=== PATIENT | male | born 1950 | race Caucasian/White ===

== ENCOUNTER 2016-12-20 02:22 | Emergency (ER) | payer OTHER ==
[2016-12-20] MEDS ORDERED: TYLENOL PO ONE (02:37)
[2016-12-20 02:46] LABS: MANUAL DIFF NEEDED? NO
--- NOTE | 2016-12-20 02:50 | PROVIDER DOCUMENTATION ---
HPI-Respiratory General - General Chief Complaint: Flu Symptoms Stated Complaint: FLU SYMPTOMS Time Seen by Provider: 12/20/16 02:45 Source: patient (coughing short of breath clear no wheezes has had diarrhea nausea dry heaves headache daughter to the clinic) Allergies/Adverse Reactions: Patient Allergies Allergy/AdvReac Type Severity Reaction Status Date / Time No Known Allergies Allergy Verified 12/20/16 02:29 Home Medications: Home Medication List Medication Instructions Recorded Confirmed Last Taken Type ATORVAstatin [Lipitor] 20 mg PO QHS 12/20/16 12/20/16 Unknown History Guaifenesin/Codeine [Robitussin-AC] 10 ml PO Q4H PRN PRN #8 oz 12/20/16 Unknown Rx LISINOpril [Prinivil] 5 mg PO DAILY 12/20/16 12/20/16 Unknown History Niacin [Niacin ER] 500 mg PO DAILY 12/20/16 12/20/16 Unknown History Tamsulosin HCl 0.4 mg PO DAILY 12/20/16 12/20/16 Unknown History - History of Present Illness-Resp Quality of Pain: reports: aching Severity in ED: reports: moderate Onset/Duration: reports: 2 days ago Timing: reports: still present, getting worse Context: reports: recent URI Cough Quality/Degree: reports: dry cough. denies: productive cough, blood streaked sputum Episode Frequency: occasional episodes Current Respiratory Medication Therapy: Not Used albuterol/atrovent inhale, Not Used prednisone, Not Used albuterol Modifying Factors: improves with: coughing. worse with: lying down, sitting upright Associated Symptoms: reports: chest pain/soreness, cough, fever/chills, flu- like symptoms, headache, muscle/bodyaches, nasal congestion, nasal drainage. denies: earache, hurts to breathe, shortness of breath, sinus pain, short of breath, sore throat, sweaty, wheezing Similar Symptoms Previously?: No Recently seen or treated by another doctor?: No Review of Systems - Adult - REVIEW OF SYSTEMS - ADULT Constitutional: reports: chills, fever, night sweats Eyes: denies: dry eyes, decreased vision, blurred vision, double vision, eye pain, redness Ears, Nose, Mouth & Throat: denies: ear pain, sinus problem, nose pain, hoarseness, throat pain, throat swelling Cardiovascular: reports: edema. denies: chest pain, irregular heart rate, palpitations, PND, syncope Respiratory: reports: cough. denies: dyspnea on exertion, hemoptysis, wheezing Gastrointestinal: reports: diarrhea, nausea, vomiting. denies: constipation, poor appetite Genitourinary: denies: dysuria, discharge, frequency, hematuria, hesitency Musculoskeletal: denies: bone pain, back pain, joint pain, joint swelling Integumentary: reports: no symptoms reported Neurological: reports: dizziness/vertigo, headache/migraines Endocrine: denies: cold intolerance, heat intolerance, increased thirst, polyuria Hematologic/Lymphatic: denies: blood clots, easy bruising, low blood count Allergic/Immunologic: denies: asthma Past History - Adult - PAST MEDICAL HISTORY-ADULT Review of Records: reports: Nursing Assessment Review, Medications Reviewed, Social history reviewed & non-contributory. Major Childhood Illnesses: reports: denies history Cardiovascular: reports: HTN, hyperlipidemia. denies: A-Fib, aortic disease, arrhythmia, blood clots, CAD, CHF, AL, PAD, palpitations, pacemaker, pericardial disease Respiratory: reports: sleep apnea. denies: asthma, bronchitis, COPD Gastrointestinal: reports: GERD. denies: cholelithiasis, diverticulosis, GI bleed, hepatitis, inflammatory bowel disease, IBS Genitourinary: reports: denies history. denies: kidney disease, kidney stones, polycystic kidney disease, prostatitis, prostate cancer Musculoskeletal: reports: denies history Neurological: reports: denies history Endocrine/Immune: denies: Diabetes, thyroid disorder - PRIOR SURGERIES/PROCEDURES Surgical/Procedure History: reports: orthopedic (extremity) - SOCIAL HISTORY Smoking: denies Substance Use: none/never Alcohol Use Frequency: never Physical Exam-General - PHYSICAL EXAM-ADULT Initial Vital Signs Reviewed: Yes - CONSTITUTIONAL General Appearance: mild distress - EYES Eyes: PERRL/EOMI, pink conjunctivae - HEAD, EARS, NOSE, MOUTH & THROAT HENMT: normocephalic/atraumatic, moist mucous membranes, normal ENT inspection, TMs normal, pharynx normal - NECK Neck: supple - RESPIRATORY Respiratory: lungs clear, no respiratory distress - CARDIOVASCULAR Cardiovascular: regular rate, rhythm. negative: no edema, bradycardia, tachycardia - GASTROINTESTINAL (ABDOMEN) Abdominal Exam: soft - LYMPHATIC Lymphatic: no adenopathy - MUSCULOSKELETAL Back Exam: no CVA tenderness Extremity: normal range of motion Progress - PLAN OF CARE/RESULTS Progress/Plan/Lab Results: Laboratory Tests 12/20/16 12/20/16 12/20/16 02:31 02:31 02:31 WBC RBC Hgb Hct MCV MCH MCHC RDW Std Deviation Plt Count MPV Immature Gran % (Auto) Neut % (Auto) Lymph % (Auto) [place] % (Auto) Eos % (Auto) Baso % (Auto) Immature Gran # (Auto) Neut # (Auto) Lymph # (Auto) [place] # (Auto) Eos # (Auto) Baso # (Auto) PT INR APTT (Factor Assay) D-Dimer Specimen Type Sample Site pH pCO2 pO2 HCO3 Base Excess Oxyhemoglobin ABG O2 Sat (Calculated) ABG O2 Saturation ABG Carboxyhemoglobin ABG Methemoglobin Rodolfo Test A-a O2 Difference Total Hemoglobin Lactate Blood Gas Modality FiO2 % Sodium 133 L Potassium 4.1 Chloride 100 Carbon Dioxide 21 L Anion Gap 12 BUN 11 Creatinine 0.8 Estimated GFR/1.73 m2 > 60 BUN/Creatinine Ratio 14 Glucose 143 H Calculated Osmolality 268 Calcium 8.5 L Magnesium 1.7 Total Bilirubin 2.60 H AST 23 ALT 19 Alkaline Phosphatase 52 Creatine Kinase 143 Troponin T < 0.010 [id number] Pept 48 Total Protein 6.5 Albumin 3.7 Globulin 3.0 Albumin/Globulin Ratio 1.0 Influenza A (Rapid) Influenza B (Rapid) 12/20/16 12/20/16 12/20/16 02:31 02:31 02:37 WBC 4.50 L RBC 5.25 Hgb 16.0 Hct 47.7 MCV 90.9 MCH 30.5 MCHC 33.5 RDW Std Deviation 12.6 Plt Count 127 L MPV 11.2 H Immature Gran % (Auto) 0.9 H Neut % (Auto) 71.2 Lymph % (Auto) 12.4 L [place] % (Auto) 12.4 H Eos % (Auto) 2.7 Baso % (Auto) 0.4 Immature Gran # (Auto) 0.04 Neut # (Auto) 3.20 Lymph # (Auto) 0.56 L [place] # (Auto) 0.56 Eos # (Auto) 0.12 Baso # (Auto) 0.02 PT 16.1 H INR 1.26 H APTT (Factor Assay) 33.5 D-Dimer 1.38 H Specimen Type Sample Site pH pCO2 pO2 HCO3 Base Excess Oxyhemoglobin ABG O2 Sat (Calculated) ABG O2 Saturation ABG Carboxyhemoglobin ABG Methemoglobin [place] Test A-a O2 Difference Total Hemoglobin Lactate Blood Gas Modality FiO2 % Sodium Potassium Chloride Carbon Dioxide Anion Gap BUN Creatinine Estimated GFR/1.73 m2 BUN/Creatinine Ratio Glucose Calculated Osmolality Calcium Magnesium Total Bilirubin AST ALT Alkaline Phosphatase Creatine Kinase Troponin T [id number]-Whulnrgfoam Pept Total Protein Albumin Globulin Albumin/Globulin Ratio Influenza A (Rapid) NEGATIVE Influenza B (Rapid) NEGATIVE 12/20/16 03:05 WBC RBC Hgb Hct MCV MCH MCHC RDW Std Deviation Plt Count MPV Immature Gran % (Auto) Neut % (Auto) Lymph % (Auto) [place] % (Auto) Eos % (Auto) Baso % (Auto) Immature Gran # (Auto) Neut # (Auto) Lymph # (Auto) [place] # (Auto) Eos # (Auto) Baso # (Auto) PT INR APTT (Factor Assay) D-Dimer Specimen Type ARTERIAL Sample Site R RADIAL pH 7.44 pCO2 35 pO2 67 HCO3 24.9 Base Excess 0.2 Oxyhemoglobin 93.0 L ABG O2 Sat (Calculated) 21.0 ABG O2 Saturation 97.0 ABG Carboxyhemoglobin 2.80 H ABG Methemoglobin 1.2 [place] Test YES A-a O2 Difference 39.0 Total Hemoglobin 16.1 Lactate 1.60 Blood Gas Modality ROOM AIR FiO2 % 21.0 Sodium Potassium Chloride Carbon Dioxide Anion Gap BUN Creatinine Estimated GFR/1.73 m2 BUN/Creatinine Ratio Glucose Calculated Osmolality Calcium Magnesium Total Bilirubin AST ALT Alkaline Phosphatase Creatine Kinase Troponin T Zam-B-Sjzuvmnzxmd Pept Total Protein Albumin Globulin Albumin/Globulin Ratio Influenza A (Rapid) Influenza B (Rapid) Orders Category Date Time Status Cardiac Monitoring DIRECTED Care 12/20/16 02:25 Active Oxygen Therapy- ED Nursing DIRECTED Care 12/20/16 02:25 Active Saline Loc NOW Care 12/20/16 02:25 Active ANGIOGRAM/PULMONARY ARTERIES [CT] Stat Exams 12/20/16 04:02 Taken CHEST-2 VIEWS [RAD] Stat Exams 12/20/16 02:25 Taken ABG [RESP] Routine Lab 12/20/16 03:05 Completed CBC WITH ELECTRONIC DIFF [HEME] Stat Lab 12/20/16 02:31 Completed CK PROFILE [SP CHEM] Stat Lab 12/20/16 02:31 Completed CK PROFILE [SP CHEM] Stat Lab 12/20/16 04:50 Received COMPREHENSIVE METABOLIC PANEL [CHEM] Stat Lab 12/20/16 02:31 Com[address] D-DIMER [address] [COAG] Stat Lab 12/20/16 02:31 Completed Flu [INFLUENZA SCREEN PL] Stat Lab 12/20/16 02:37 Completed MAGNESIUM [CHEM] Stat Lab 12/20/16 02:31 Completed PRO B-NATRIURETIC PEPTIDE Stat Lab 12/20/16 02:[address] Com[address]IME WITH INR PL [COAG] Stat Lab 12/20/16 02:[address] [COAG] Stat Lab 12/20/16 02:31 Completed TROPONIN T Stat Lab 12/20/16 02:31 Completed TROPONIN T Stat Lab 12/20/16 04:50 Received Acetaminophen [Tylenol] Med 12/20/16 02:37 Discontinued 650 mg PO NOW ONE EKG [EKG] Stat Ther 12/20/16 04:03 Draft Vital Signs - 24 hr 12/20/16 12/20/16 12/20/16 02:23 03:03 03:39 Temperature 101.2 F H Pulse Rate 82 75 80 Respiratory 15 21 15 Rate Blood Pressure 165/93 142/82 127/75 O2 Sat by Pulse 92 L 92 L 92 L Oximetry 12/20/16 12/20/16 12/20/16 04:18 04:48 05:15 Temperature 100.4 F H Pulse Rate 74 70 Respiratory 15 21 Rate Blood Pressure 123/71 127/75 O2 Sat by Pulse 93 L 92 L Oximetry - EKG 2 Time of EKG reading by physician:: 05:23 EKG Read and Signed by:: Uri Villagran Rate: 75 Rhythm: sinus QRS: normal HI Interval: normal Prior EKG Comparison: unchanged from prior - XRAY 1 XRAY Study: Chest Impression: Normal - CT/MRI 1 CT Study: Thorax Impression: Normal Departure - Departure Time of Disposition Order: 05:24 DIAGNOSIS: URI (upper respiratory infection) Qualifiers: URI type: unspecified viral URI Qualified Code(s): J06.9 - Acute upper respiratory infection, unspecified; B97.89 - Other viral agents as the cause of diseases classified elsewhere Disposition: HOME 01 Certified Medical Emergency: Emergent Condition: Stable Additional Instructions: ED Follow Up Instructions: You have been treated by a care provider in the Emergency Department. These instructions are being provided to you so you can have an understanding of how to care for yourself upon discharge. Upon discharge from the Emergency Department, you are responsible for making arrangements for follow-up care by a physician of your choice. Take all prescribed medications as directed. Return to the Emergency Department immediately for any new or worsening symptoms. You may call the Physician Referral phone number at [phone] to obtain a list of Physicians who are taking new patients. Prescriptions: Guaifenesin/Codeine [Robitussin-AC] 10 ml PO Q4H PRN PRN #8 oz PRN Reason: Cough
[2016-12-20 02:56] LABS: BASO% 0.4 % (0.0-0.8); EOS# 0.12 X1000 (0.0-0.7); EOS% 2.7 % (0.0-10.0); HEMATOCRIT 47.7 % (42.0-52.0); IMM GRAN# 0.04 X1000 (0.0-0.04); IMM GRAN% 0.9 % (0.0-0.5); LYMPH# 0.56 X1000 (1.2-3.4); LYMPH% 12.4 % (20.5-51.1); MCH 30.5 PG (27-31); MCHC 33.5 g/dL (33-37); MCV 90.9 FL (81-99); MONO# 0.56 X1000 (0.11-0.59); MONO% 12.4 % (1.7-9.3); MPV 11.2 FL (7.4-10.4); NEUT% 71.2 % (42.2-75.2); PLT 127 X1000 (130-400); RBC 5.25 XMIL (4.7-6.1)
[2016-12-20 03:11] LABS: AGAP 12; ALBUMIN 3.7 g/dL (3.5-5.0); ALKALINE PHOSPHATASE 52 U/L (32-122); BUN 11 mg/dL (8-22); CALCIUM 8.5 mg/dL (8.8-10.2); CHLORIDE 100 mmol/L (98-107); CK PROFILE 143 U/L (24-204); COSMO 268; GOT 23 U/L (10-34); GPT 19 U/L (10-44); MAGNESIUM 1.7 mg/dL (1.5-2.7); POTASSIUM 4.1 mmol/L (3.5-5.1); SODIUM 133 mmol/L (136-145); TCO2 21 mmol/L (25-35); TOTAL PROTEIN 6.5 g/dL (6.3-8.3)
[2016-12-20 03:23] LABS: BE 0.2 mmoll (-3.0-3.0); BLOOD TYPE ARTERIAL; DRAW SITE R RADIAL; METHB 1.2 % (0.0-1.5); PCO2(98.6) 35 mmHg (35-45); PO2(98.6) 67 mmHg (60-100); SAMPLE BLOOD; THB 16.1 g/dL (11.5-17.4); pH(98.6) 7.44 (7.35-7.45)
[2016-12-20 03:24] LABS: ALLEN TEST YES; MODALITY ROOM AIR
[2016-12-20 03:31] LABS: INR 1.26 (0.86-1.15); PROTIME 16.1 Seconds (12.1-15.5); PTT PL 33.5 Seconds (22.6-43.9)
--- NOTE | 2016-12-20 04:51 | EKG Report ---
Test Performed on : 12/20/2016 04:42:45 AM Test Reason : sob Blood Pressure : / mmHG Vent. Rate : 075 BPM Atrial Rate : 075 BPM P-R Int : 144 ms QRS Dur : 098 ms QT Int : 386 ms P-R-T Axes : 033 022 039 degrees QTc Int : 431 ms Normal sinus rhythm. Normal ECG No previous ECGs available Unconfirmed Result
[2016-12-20 05:19] VITALS: BP 127/75
--- NOTE | 2016-12-20 07:56 | Diag Imaging Result Document ---
PROCEDURE NAME: CHEST-2 VIEWS - 12/20/2016 FRONTAL AND LATERAL CHEST, TWO VIEWS: FINDINGS: The lungs are well expanded. The heart is not enlarged. The vessels are not distended. No pleural effusions. No consolidation. IMPRESSION: No acute abnormality.
--- NOTE | 2016-12-20 08:17 | Diag Imaging Result Document ---
PROCEDURE NAME: ANGIOGRAM/PULMONARY ARTERIES - 12/20/2016 CT CHEST WITH INTRAVENOUS CONTRAST: FINDINGS: Poor inspiratory effort. No pleural effusions. No thoracic aortic aneurysm or dissection. No cardiomegaly. There are multiple calcified mediastinal and right hilar lymph nodes. There are several mildly prominent noncalcified lymph nodes as well. There are scattered calcified granuloma. Normal opacification of the pulmonary arteries and their proximal major branches. Atelectasis is found in the lower lungs. No consolidation. No bronchiectasis. No pneumothoraces. IMPRESSION: 1. No pulmonary emboli. 2. There is evidence of a prior granulomatous infection. 3. Mildly prominent mediastinal and right hilar lymph nodes which are noncalcified. A preliminary report was given at 4:57 a.m..
== END 2016-12-20 05:35 | disposition home or self-care (01) ==
LOC: P.ED 02:22
DX: J06.9 Acute upper respiratory infection, unspecified (principal); R05 Cough; R07.9 Chest pain, unspecified; R50.9 Fever, unspecified; M79.1 Myalgia; R51 Headache; R09.81 Nasal congestion; R61 Generalized hyperhidrosis; Z79.899 Other long term (current) drug therapy; R60.9 Edema, unspecified; R19.7 Diarrhea, unspecified; R11.2 Nausea with vomiting, unspecified; R42 Dizziness and giddiness; I10 Essential (primary) hypertension; E78.5 Hyperlipidemia, unspecified
CPT/HCPCS: 71020; 71275; 80053; 82550; 82805; 83735; 83880; 84484; 85025; 85379; 85610; 85730; 87804; 93005; Q9967